=== PATIENT | female | born 1970 | race Caucasian/White ===

== ENCOUNTER 2018-11-17 14:37 | Emergency (ER) ==
[2018-11-17 14:45] VITALS: BP 173/83; TEMP 97.7; BMI 26.9
--- NOTE | 2018-11-17 16:26 | ED.PDOC ---
General ED Provider: Dr. BLADIMIR DE LA O Chief Complaint: Hand Pain/Injury Stated Complaint: States she sustained an injury to her Rt hand mid 5th metacarpal region anatomical medial volar surface. State while handling a piece of firewood a wooden splinter punctured her hand resulting in a small laceration puncture wound to rt hand. She states that she states she has taken clean razor blade and scraped across the area which resulted in release of some pus. States she has squeezed the area and several small wooden fragments were produced from the wound. Currently area painful, and despite applying PRID Salve has not been successful in retrieving further wooden fragments and she believes there is additions wooden particles or portions of the splinter still in the wound. Reiterates that she has managed to squeeze small "splinters of wood and pus from the site. No drainage now. Is just tender and uncomfortable. States she previously was seen by her PCP in recent past who she states after viewing the Rt Hand advised her to go to the ER. State her dad saw the wound today and was insistent on bringing her to ER for evaluation and treatment. Time Seen by Physician: 15:40 Mode of Arrival: Walk-In Information Source: Patient Exam Limitations: No limitations Primary Care Provider: KIMBERLY WARNER Nursing and Triage Documentation Reviewed and Agree: Yes Does patient meet sepsis criteria?: No System Inflammatory Response Syndrome: Not Applicable Sepsis Protocol: For patient's 13 years and over: Temp is 96.8 and below OR 101 and greater Pulse >90 BPM Resp >20/minute Acutely Altered Mental Status Are patient's symptoms suggestive of a new infection, such as: -Pneumonia -Skin, Soft Tissue -Endocarditis -UTI -Bone, Joint Infection -Implantable Device -Acute Abdominal Infection -Wound Infection -Meningitis -Blood Stream Catheter Infection -Unknown Skin Complaint Exam - Laceration/Abrasion/Hand Complaint/Exam Location of Injury: Hand Mechanism of Injury: Laceration, Puncture, FB potential Onset/Duration: 2 weeks Symptoms Are: Still present Initial Severity: Severe Current Severity: Moderate Aggravating: Movement Alleviating: None Associated Signs and Symptoms: Denies: Fever, Chills, Erythema, Numbness, Tingling Related History: Reports: Right hand dominant. Denies: Occupational injury Hand Picture: 1 - Site of injury Differential Diagnoses: Foreign Body, Puncture Wound (Patinent states she is current with Tetanus toxoid injection ) Review of Systems - Review Of Systems Constitutional: Reports: No symptoms Eyes: Reports: No symptoms Ears, Nose, Mouth, Throat: Reports: No symptoms Respiratory: Reports: No symptoms Cardiac: Reports: No symptoms GI: Reports: No symptoms : Reports: No symptoms Musculoskeletal: Reports: No symptoms Skin: Reports: No symptoms Neurological: Reports: No symptoms Endocrine: Reports: No symptoms Hematologic/Lymphatic: Reports: No symptoms All Other Systems: Reviewed and Negative Past Medical History - Past Medical History Previously Healthy: Yes Endocrine: Reports: None Cardiovascular: Reports: None Respiratory: Reports: None Hematological: Reports: None Gastrointestinal: Reports: None Genitourinary: Reports: None Neuro/Psych: Reports: None Musculoskeletal: Reports: None, Other (Swelling and pain rt hand) Cancer: Reports: None Last Menstrual Period: menopause - Surgical History General Surgical History: Reports: None - Family History Family History: Reports: None - Social History Smoking Status: Current every day smoker, Light tobacco smoker Hx Substance Use: No Alcohol Screening: Occasionally - Immunizations Tetanus Shot up to Date: Yes (2 yrs ago) Physical Exam - Physical Exam Appearance: Well-appearing, No pain distress, Well-nourished Ill-appearing: None Pain Distress: Mild Eyes: KEERTHI, EOMI, Conjunctiva clear ENT: Ears normal, Nose normal, Oropharynx normal Respiratory: Airway patent, Breath sounds clear, Breath sounds equal, Respirations nonlabored Cardiovascular: RRR, Pulses normal, No rub, No murmur GI/: Soft, Nontender, No masses, Bowel sounds normal, No Organomegaly Musculoskeletal: Normal strength, ROM intact, No edema, No calf tenderness Skin: Warm (Rt Hand injury as described), Dry, Normal color Neurological: Sensation intact, Motor intact, Reflexes intact, Cranial nerves intact, Alert, Oriented Psychiatric: Affect appropriate, Mood appropriate Procedures - Incision and Drainage Site: Rt Hand Instrument Used: 11 Blade I & D Procedure: Yes: Betadine Prep, Hibiclens Prep, Sterile drapes applied, Sterile dressing applied Lidocaine Used: Yes Type of Drainage: Present: Pus Irrigated: Yes - Foreign Body Removal Location of Foreign Object: Rt Hand Foreign Object: Wooded fragment ( approximately 0.5 X 1.5 cm, fairly flat and dark in color Depth of Object: Subcutaneous Type of Anesthesia: None, Local Medication Used: Yes: Lidocaine Prep: Saline, Betadine, Hibiclens, Scrub Irrigation: Yes (Normal Saline-copiously post drainage and removal) Skin Incised: Yes (3 simple sutures 3/0 Nylon used to close wound) Instruments Used: Yes: Forceps, Other (hemostae) Foreign Body Identified and Removed: Yes (Purulent drainage- C& S obtained) Re-Evaluation - Re-Evaluation Time of Re-Evaluation: 18:20 Status: Improved Vital Signs Stable: Yes Appearance: NAD Lungs: Clear Skin: Warm and Dry Neuro: Alert and Oriented X3 CV: RRR Critical Care Note - Critical Care Note Total Time (mins): 60 Course - Course Orders, Labs, Meds: Orders Category Date Time Status WOUND CULTURE Stat LAB 11/17/18 18:29 Completed Cephalexin [Keflex] MEDS 11/17/18 18:27 Discontinued 500 mg PO ONCE STA Lidocaine HCl/Pf [Lidocaine HCl 1% Sdv] MEDS 11/17/18 16:40 Discontinued 5 ml .ROUTE .STK-MED ONE Lidocaine HCl/Pf [Lidocaine HCl 1% Sdv] MEDS 11/17/18 16:57 Discontinued 5 ml SUBCUT ONCE STA Medications Discontinued Medications Generic Name Dose Route Start Last Admin Trade Name Freq PRN Reason Stop Dose Admin Cephalexin 500 mg 11/17/18 18:27 11/17/18 18:32 Keflex PO 11/17/18 18:28 500 mg ONCE STA Administration Lidocaine HCl 5 ml 11/17/18 16:57 11/17/18 17:36 Lidocaine Hcl 1% Sdv SUBCUT 11/17/18 16:58 5 ml ONCE STA Administration Vital Signs: Temp Pulse Resp BP Pulse Ox 11/17/18 14:39 97.7 F 94 H 20 173/83 H 96 Departure - Departure Time of Disposition: 18:30 Disposition: HOME SELF-CARE Discharge Problem: Cellulitis and abscess of hand, Retained foreign body Instructions: Care For Your Stitches (ED), Cellulitis (ED) Condition: Good Pt referred to PMD for follow-up: Yes IPMP verified?: No Additional Instructions: Follow up with your PCP Take medication as prescribed Keep wound clean and dry Return to ER in 48 hrs for wound check Have wound evaluated at PCP office 1 week for suture removal Prescriptions: Cephalexin [Keflex] 500 mg PO TID #21 capsule Hydrocodone/Acetaminophen [[place] 5-325 Tablet] 1 each PO Q4-6H PRN #15 tablet PRN Reason: Pain Hand Allergies/Adverse Reactions: Allergies No Known Allergies Allergy (Unverified 11/19/18 10:16) Home Medications: Ambulatory Orders Cephalexin [Keflex] 500 mg PO TID #21 capsule 11/17/18 Cetirizine HCl [Zyrtec] 10 mg PO DAILY 11/17/18 Hydrocodone/Acetaminophen [[place] 5-325 Tablet] 1 each PO Q4-6H PRN #15 tablet Propranolol HCl 80 mg PO DAILY 11/17/18 Disposition Discussed With: Patient (May return this Friday for wound check) Additional Comments Additional Comments: Initially contemplated imaging the hand to evaluated for metalic object but cancelled after confirming with patient type of foreign object she suspected was definitely wooden. In additon patient states referred to ER by PCP for evaluaton and possible I/D. Discussed with patient options of treatment including I&D here in ER vs referral to hand surgeon. Patient declined referral option stating site is painful and prefers not to wait for referral appointment and transportation issue. Discussed anticipated procedure with patient including potential risk, benefits, potential complications and resulting sequelae. Explained necessity to incise region of concern to drain suspected infectious drainaged and hopefully remove any retained debris. Local anesthesia to be utilized. Denies allergies to lidocaine. Patient gives verbal consent for procedure.Patinent states she is current with Tetanus toxoid injection
[2018-11-17] MEDS ORDERED: LIDOCAINE HCL 1% SDV ONE (16:40)
[2018-11-17] MEDS ORDERED: LIDOCAINE HCL 1% SDV SUBCUT STA (16:57)
[2018-11-17] MEDS ORDERED: KEFLEX PO STA (18:27)
== END 2018-11-17 18:36 | disposition home or self-care (01) ==
LOC: ED 14:37
DX: M79.5 Residual foreign body in soft tissue (principal); L03.113 Cellulitis of right upper limb; W45.8XXA Other foreign body or object entering through skin, initial encounter; F17.210 Nicotine dependence, cigarettes, uncomplicated
CPT/HCPCS: 87070; 87186; 99282

== ENCOUNTER 2018-11-19 10:14 | Emergency (ER) ==
[2018-11-19 10:14] VITALS: BMI 26.9
[2018-11-19 10:16] VITALS: BP 157/83; TEMP 96.7
--- NOTE | 2018-11-19 10:26 | ED.PDOC ---
General ED Provider: Dr. BLADIMIR DE LA O Chief Complaint: Wound Check Stated Complaint: Re evaluation of hand wound. Treated in ER last week and is in to have wound rechecked. States doing well Time Seen by Physician: 10:15 Mode of Arrival: Walk-In Information Source: Patient Primary Care Provider: KIMBERLY WARNER Nursing and Triage Documentation Reviewed and Agree: Yes Does patient meet sepsis criteria?: No System Inflammatory Response Syndrome: Not Applicable Sepsis Protocol: For patient's 13 years and over: Temp is 96.8 and below OR 101 and greater Pulse >90 BPM Resp >20/minute Acutely Altered Mental Status Are patient's symptoms suggestive of a new infection, such as: -Pneumonia -Skin, Soft Tissue -Endocarditis -UTI -Bone, Joint Infection -Implantable Device -Acute Abdominal Infection -Wound Infection -Meningitis -Blood Stream Catheter Infection -Unknown Review of Systems - Review Of Systems Constitutional: Reports: No symptoms Eyes: Reports: No symptoms Ears, Nose, Mouth, Throat: Reports: No symptoms Respiratory: Reports: No symptoms Cardiac: Reports: No symptoms GI: Reports: No symptoms : Reports: No symptoms Musculoskeletal: Reports: No symptoms Skin: Reports: No symptoms Neurological: Reports: No symptoms Endocrine: Reports: No symptoms Hematologic/Lymphatic: Reports: No symptoms All Other Systems: Reviewed and Negative Past Medical History - Past Medical History Previously Healthy: Yes Endocrine: Reports: None Cardiovascular: Reports: Hypertension Respiratory: Reports: None Hematological: Reports: None Gastrointestinal: Reports: None Genitourinary: Reports: None Neuro/Psych: Reports: None Musculoskeletal: Reports: None Cancer: Reports: None Last Menstrual Period: N/A - Surgical History General Surgical History: Reports: Unknown - Family History Family History: Reports: None - Social History Smoking Status: Current every day smoker, Light tobacco smoker Hx Substance Use: No Alcohol Screening: Occasionally - Immunizations Tetanus Shot up to Date: Yes Physical Exam - Physical Exam Appearance: Well-appearing, No pain distress, Well-nourished Eyes: KEERTHI, EOMI, Conjunctiva clear ENT: Ears normal, Nose normal, Oropharynx normal Respiratory: Airway patent, Breath sounds clear, Breath sounds equal, Respirations nonlabored Cardiovascular: RRR, Pulses normal, No rub, No murmur GI/: Soft, Nontender, No masses, Bowel sounds normal, No Organomegaly Musculoskeletal: Normal strength (Hand wound healing well), ROM intact, No edema , No calf tenderness Skin: Warm, Dry, Normal color Neurological: Sensation intact, Motor intact, Reflexes intact, Cranial nerves intact, Alert, Oriented Psychiatric: Affect appropriate, Mood appropriate Critical Care Note - Critical Care Note Total Time (mins): 0 Course - Course Vital Signs: Temp Pulse Resp BP Pulse Ox 11/19/18 10:14 96.7 F L 85 18 157/83 H 94 L Departure - Departure Time of Disposition: 10:25 Disposition: HOME SELF-CARE Discharge Problem: Encounter for postoperative wound check Instructions: Care For Your Stitches (ED), Wound Infection (ED) Condition: Good Pt referred to PMD for follow-up: Yes (Dr Warner ) IPMP verified?: No Additional Instructions: Wound Care as directed Continue antibiotics Wound check and suture removal next Friday Allergies/Adverse Reactions: Allergies No Known Allergies Allergy (Unverified 11/19/18 10:16) Home Medications: Ambulatory Orders Cephalexin [Keflex] 500 mg PO TID #21 capsule 11/17/18 Cetirizine HCl [Zyrtec] 10 mg PO DAILY 11/17/18 Hydrocodone/Acetaminophen [[place] 5-325 Tablet] 1 each PO Q4-6H PRN #15 tablet Propranolol HCl 80 mg PO DAILY 11/17/18 Disposition Discussed With: Patient Musculoskeletal Complaint Exam - Hand/Wrist Complaint/Exam Location of Pain: Reports: Right, Hand Mechanism of Injury: Reports: Trauma Symptoms Are: Resolved Onset of Pain: Reports: Immediate Initial Severity: Moderate Current Severity: None Location: Reports: Discrete Character: Reports: Sharp Alleviating: Reports: Rest Aggravating: Reports: None Associated Signs and Symptoms: Denies: Swelling, Redness, Bruising, Fever, Weakness, Numbness, Tingling Related History: Denies: Similar episode Dominant Hand: Right Related Surgical History: Reports: None Hand/Wrist Findings: Absent: Swelling Tenderness: Absent: Radius Compartment Syndrome Risk Factors: Absent: Pain Differential Diagnoses: Puncture Wound
== END 2018-11-19 10:31 | disposition home or self-care (01) ==
LOC: ED 10:14
DX: S61.409D Unspecified open wound of unspecified hand, subsequent encounter (principal); Z98.890 Other specified postprocedural states; F17.210 Nicotine dependence, cigarettes, uncomplicated
CPT/HCPCS: 99281